=== PATIENT | male | born 1950 | race Caucasian/White ===

== ENCOUNTER 2019-05-30 07:23 | Day surgery (SDC) | payer OTHER, SELFPAY ==
[2019-05-29 16:08] VITALS: BMI 28.4
--- NOTE | 2019-05-30 07:42 | ANES.PREANES ---
Pre-Anesthetic Assessment Pre-Anesthetic Assessment: Height/Weight: Height 1.8 m Weight 92.533 kg Preop Diagnosis: screening Proposed Procedure: Operation Date: 05/30/19 09:00 Proposed Procedures p Colonoscopy(Not Applicable) - Feliz Nguyễn MD Familial anesthetic complications: No trouble with anesthesia Was Beta Nilesh taken within 24 hours: N/A Last intake: NPO > 8 hrs, took amlodipine this morning Social: Social History: No alcohol and No tobacco Exam: Pre-Anes Outpt Exam: alert, oriented x 3, clear to auscultation bilaterally and regular rate & rhythm Airway: Cervical ROM: WNL MP: 2 Additional comments: pulled teeth Pulmonary: Pulmonary: Sleep apnea (cpap) CV/HEM: CV/HEM: HTN : : None reported Hepatic: Hepatic: None reported GI: GI: None reported Metabolic: Metabolic: None reported Musc/skel: Musc/skel: Lower Back Pain Neuropsych: Neuropsych: None reported Anesthetic Plan: ASA status: II Anesthesia: MAC Risk of > 500 ml blood loss (7ml/kg in children): No PFSH Anesthesia PFSH: Social History (Updated 05/29/19 @ 16:07 by Vita Ramos) Smoking and tobacco status: never smoked Alcohol intake: never Data Anesthesia Cardiac Studies: No Data to Display
[2019-05-30 08:27] VITALS: BP 167/84; PULSE 64; RESP 18; TEMP 36.4; O2SAT 96
[2019-05-30] MEDS: sodium chloride 0.9% 1,000 ML 30 ML (08:33)
[2019-05-30 10:00] VITALS: BP 139/76; PULSE 54; RESP 16; TEMP 36.7; O2SAT 95
--- NOTE | 2019-05-30 10:01 | PM.HPUD ---
H&P update H&P Update: DATE OF SURGERY/PROCEDURE: 05/30/19 DATE H&P PERFORMED: 04/24/19 PLANNED PROCEDURE: Operation Date: 05/30/19 09:00 Proposed Procedures p Colonoscopy(Not Applicable) - Feliz Nguyễn MD Conscious Sedation: PHYSICAL EXAM: alert and oriented x 3 OTHER PERTINENT EXAM FINDINGS: Abdomen: Soft Full H&P Perinent History: Social History: Social History Smoking and tobacco status: never smoked Alcohol intake: never A&P Assessment and plan (1) Status post colonoscopy: Plan for colonoscopy under MAC Status: Acute Code(s): Z98.890 - Other specified postprocedural states
[2019-05-30 10:10] VITALS: BP 142/84; PULSE 52; RESP 16; O2SAT 98
--- NOTE | 2019-05-30 14:49 | ANE.PACU ---
 Inpatient post-anesthesia follow up: Airway intact: Yes Vital signs: Temperature 98.0 F Pulse Rate [Monito r] 52 Respiratory Rate 16 Blood Pressure [Le ft Arm] 142/84 Pulse Oximetry 98 Oxygen Delivery Me thod Room Air Oxygen Flow Rate 2 Fraction of Inspir ed Oxygen Hydration adequate: Yes Nausea and vomiting: No Mental status: Baseline
== END 2019-05-30 10:23 | disposition home or self-care (01) ==
PROVIDERS: Family Provider Internal Medicine; PCP Internal Medicine; Visit Provider Surgery
PROC: 0DJD8ZZ Inspection of Lower Intestinal Tract, Via Natural or Artificial Opening Endoscopic (ICD-10-PCS; CPT 45378; principal; 2019-05-30 09:00)
DX: Z12.11 Encounter for screening for malignant neoplasm of colon (principal); K57.30 Diverticulosis of large intestine without perforation or abscess without bleeding; G47.30 Sleep apnea, unspecified; I10 Essential (primary) hypertension
CPT/HCPCS: 12345; 45378; 96365; J2704; J7030

== ENCOUNTER → 2019-06-07 08:27 | Outpatient (BNVA) | payer OTHER, SELFPAY | PROVIDERS: Family Provider Internal Medicine; PCP Internal Medicine; Visit Provider Orthopaedic Surgery | DX: Z98.890 Other specified postprocedural states (principal); M19.139 Post-traumatic osteoarthritis, unspecified wrist | CPT/HCPCS: 73110 ==

== ENCOUNTER → 2019-06-21 08:26 | Outpatient (BNVA) | payer MEDICARE, OTHER, SELFPAY | PROVIDERS: Family Provider Internal Medicine; PCP Internal Medicine; Referring Provider Orthopaedic Surgery; Visit Provider Orthopaedic Surgery | DX: M25.561 Pain in right knee (principal); M17.11 Unilateral primary osteoarthritis, right knee | CPT/HCPCS: 73560; 73565 ==

== ENCOUNTER 2019-07-11 08:10 | Outpatient (CLI) | payer MEDICARE, OTHER, SELFPAY | END 2019-07-11 08:11 | disposition home or self-care (01) | PROVIDERS: Family Provider Internal Medicine; PCP Internal Medicine; Visit Provider Orthopaedic Surgery | DX: I44.0 Atrioventricular block, first degree (principal) | CPT/HCPCS: 93005 ==

== ENCOUNTER 2019-07-20 10:40 | Inpatient (IN) | payer MEDICARE, OTHER, SELFPAY ==
[2019-07-10 08:19] VITALS: BMI 29.2
--- NOTE | 2019-07-10 08:33 | ECG_ITS ---
Measurements Intervals [place] Rate: 65 P: 22 DC: 244 QRS: 56 QRSD: 121 T: 37 QT: 451 QTc: 472 SINUS RHYTHM WITH FIRST DEGREE AV BLOCK MODERATE INTRAVENTRICULAR CONDUCTION DELAY [110+ ms QRS DURATION] PROLONGED QT INTERVAL Compared to ECG 02/08/2019 10:13:30 Intraventricular conduction delay now present Prolonged QT interval now present Myocardial infarct finding no longer present Electronically Signed On 07-10-2019 15:30:58 CONSERVATION AGENT by Kathie Campbell M.D. [email or web address]
--- NOTE | 2019-07-10 08:55 | ANES.PREANE2 ---
Pre-Anesthetic Assessment Pre-Anesthetic Assessment: Height/Weight: Height 1.8 m Weight 95.254 kg Preop Diagnosis: Left knee end stage DJD Proposed Procedure: Operation Date: 07/20/19 07:00 Proposed Procedures p left total knee arthroplasty with imageless computer navigation/ 73228, 24720/M17.0(Left) - Zaid Fraser DO Exam: Pre-Anes Outpt Exam: alert, oriented x 3, clear to auscultation bilaterally and regular rate & rhythm Airway: Submandibular: WNL Cervical ROM: WNL CV/HEM: CV/HEM: HTN Comments: rx'd x 5y stress test 12/02 negative Musc/skel: Musc/skel: Lower Back Pain and OA/DJD Comments: nonradiating PFSH Anesthesia PFSH: Social History Smoking and tobacco status: never smoked Alcohol intake: never Data Anesthesia Cardiac Studies: No Data to Display
[2019-07-11 09:29] LABS: Add Urine Microscopic? NO
[2019-07-11 09:34] LABS: Basophils % 0.8 %; Eosinophils # 0.1 10^3/uL (0.0-0.8); Eosinophils % 2.6 %; Hematocrit 44.3 % (42.0-52.0); Lymphocytes # 1.5 10^3/uL (0.8-4.8); Lymphocytes % 30.5 %; Mean Corpuscular HGB Conc 33.9 g/dL (30.0-36.0); Mean Corpuscular Hemoglobin 28.3 pg (28.0-34.0); Mean Corpuscular Volume 83.6 fL (80-94); Mean Platelet Volume 11.3 fL (7.4-10.4); Monocytes # 0.4 10^3/uL (0.2-0.9); Monocytes % 8.2 %; Neutrophils # 2.9 10^3/uL (1.8-7.7); Neutrophils % 57.7 %; Nucleated Red Blood Cells % 0 %; Platelet Count 175 10^3/cmm (130-400); Red Cell Distribution Width 12.3 % (12.1-15.1)
[2019-07-11 09:36] LABS: Bilirubin Urine Neg (NEGATIVE); Blood Urine Neg (Negative); Glucose Urine UA Norm (Normal); Ketones Urine Negative (Negative); Leukocyte Esterase Urine Negative (Negative); Nitrate Urine Negative (Negative); Protein Urine Neg (Negative); Specific Gravity, Urine 1.005 (1.005-1.030); Urine Appearance Clear (CLEAR); Urine Color Yellow (Yellow); Urobilinogen Urine Norm (Negative); pH Urine 7 (5-7)
[2019-07-11 09:47] LABS: Alanine Aminotransferase 24 U/L (0-41); Albumin Level 4.2 g/dL (3.5-5.2); Alkaline Phosphatase 104 IU/L (40-130); Anion Gap 16.3 (5-19); Aspartate Amino Transferase 20 U/L (0-40); Blood Urea Nitrogen 14 mg/dL (8-23); Calcium 9.6 mg/dL (8.5-10.5); Carbon Dioxide 27 mmol/L (22-29); Chloride 96 mmol/L (98-107); Globulin 3.5 g/dL (1.3-4.6); Glomerular Filtration Rate 74.1 mL/min (90-130); Glucose 134 mg/dL (65-115); Potassium 3.3 mmol/L (3.5-5.1); Sodium 136 mmol/L (136-145); Total Bilirubin 0.4 mg/dL (0.15-1.2); Total Protein 7.7 g/dL (6.6-8.7)
[2019-07-20] VITALS (22 sets, daily range): BP systolic 92–176; BP diastolic 60–94; PULSE 54–97; RESP 13–25; TEMP 36.1–37; O2SAT 90–100
[2019-07-20] MEDS: sodium chloride 0.9% 1,000 ML 30 ML IV (06:09)
[2019-07-20] MEDS: CELEcoxib 200 mg Capsule 400 MG PO (06:11)
[2019-07-20] MEDS: gabapentin 300 mg Capsule PO (06:11)
[2019-07-20] MEDS: acetaminophen 500 mg Tablet 1000 MG PO (06:11)
--- NOTE | 2019-07-20 06:21 | ANES.PREANE2 ---
Pre-Anesthetic Assessment Pre-Anesthetic Assessment: Height/Weight: Height 1.8 m Weight 95.254 kg Temp Pulse Resp BP Pulse Ox 97.3 F L 64 18 147/81 97 07/20/19 05:49 07/20/19 05:49 07/20/19 05:49 07/20/19 05:49 07/20/19 05:49 Preop Diagnosis: DJD left knee Proposed Procedure: Operation Date: 07/20/19 07:00 Proposed Procedures p left total knee arthroplasty with imageless computer navigation/ 82064, 08928/M17.0(Left) - Zaid Fraser DO Last intake: Intake Last Liquid Date 07/19/19 Last Solid Date 07/19/19 Last Intake: 22:00 Meds/Allergies Current Medications: Current Medications Generic Name Dose Route Start Last Admin Trade Name Freq PRN Reason Stop Dose Admin Sodium Chloride 1,000 mls @ 30 ml s/hr 07/20/19 05:45 07/20/19 06:09 Sodium Chloride 0.9% IV 07/21/19 05:44 30 mls/hr .Q24H JULIANNA Administration Vancomycin HCl 1,5 00 mg/ 250 mls @ 166.667 mls/hr 07/20/19 05:33 07/20/19 06:10 Sodium Chloride IV 07/20/19 07:02 166.7 mls/hr ONCE ONE Administration Protocol PFSH Anesthesia PFSH: Social History Smoking and tobacco status: never smoked Alcohol intake: never Data Anesthesia CBC & Chem 7: 07/11/19 09:02 07/11/19 09:02 Cardiac Studies: No Data to Display
--- NOTE | 2019-07-20 06:43 | ANES.PROC ---
Anesthesia Procedures Procedure/Date: 07/20/19 Left adductor canal block Procedure Narrative: R&B's of left adductor canal block disc'd. Verbal and written consent obtained. Versed 2+1+1+.5mg, Fentanyl 50ug. US utilized to observe the left adductor canal space, PRATIK. Ropvicaine 0.5% + Lido 2% with epi in 3:1 mixture, 40 cc total volume in 5cc increments without problems/complications. Nerve Block ^: Nerve Block 1: Main Anesthesia: general anesthesia Time Out Performed: Yes Consent: requested by attending/covering physician, from patient, risks and benefits reviewed and patient agrees to proceed Nerve block location: adductor canal Anesthesia monitors applied: pulse oximetry and oxygen Nerve block position: supine Anesthetic Used: lidocaine 2%, ropivicaine 0.5% and with epi Amount of anesthesia used (mL): 40 Nerve Stimulator Used?: No Interscalene/Femoral BLK: 2 stimuplex 22 g needle used for position and inplane approach Injection: neg aspiration of heme Patient Tolerated Procedure: well and no complications Complications: none
--- NOTE | 2019-07-20 06:54 | W.PM.OPSUD ---
Surgery/Procedure H&P Update DATE OF PROCEDURE: July 20, 2019 DATE H&P PERFORMED: 06/21/19 H&P UPDATE INFORMATION: I have reviewed H&P completed within last 30 days, I have examined patient prior to procedure and No changes to prior documentation PREOP DIAGNOSIS: DJD left knee PLANNED PROCEDURE: Operation Date: 07/20/19 07:00 Proposed Procedures p left total knee arthroplasty with imageless computer navigation/ 95615, 87242/M17.0(Left) - Zaid Fraser DO
[2019-07-20] MEDS: fentaNYL 50 mcg/mL INJ 2mL 100 MCG IVP (06:55)
--- NOTE | 2019-07-20 06:55 | PM.OP ---
Operative Report Date of procedure: July 20, 2019 Pre-op Diagnosis: DJD left knee Post-op diagnosis: same Procedure Done: Left total knee arthroplasty with imageless computer assisted navigation Implants: Maxime triathlon components Specimens removed/disposition: Bone and cartilage left knee Surgeon: Zaid Fraser Anesthesia: Nerve Block (Preoperative single shot adductor canal block) Estimated blood loss (mL): 25 Tourniquet time (min): 120 Tourniquet time: At 300 mmHg pressure IV fluids (mL): 1,500 Urine output (mL): 350 Complications: No apparent complications Findings: Tricompartmental degenerative arthritis left knee Condition: stable Disposition: PACU Brief History: 68-year-old white male with progressive disabling left knee pain due to generative arthritis. X-rays show [id number] changes. Patient's failed conservative treatment. Risk, benefits and potential complications of total knee arthroplasty been discussed with the patient. He is attended the joint class. He is aware that risks include but are not limited to: Infection, nerve/blood vessel/tendon injury, failure to leave all pain postoperative stiffness potential loosening or fracture about the prosthesis that could require revision. Medical complications can include blood clots, heart attack, stroke risk up to including . Risk of transfusion is low following total knee arthroplasty however transfusions do carry the risk of transfusion reaction, transmission of infectious diseases such as hepatitis and AIDS all of which can be fatal. All the patient's questions have been answered is agreeable to proceed with surgery. Procedure: 2 g Ancef 1 g vancomycin 1 g prior to incision and that time of closure tranexamic acid Maxime triathlon total knee components Size 6 left cemented femur posterior stabilized Size 6 universal tibial baseplate Size 6 x 13 mm thickness posterior stabilized tibial articular surface Size 29 mm x 9 mm thickness asymmetric polyethylene patella Left total knee arthroplasty with resurfacing of patella, femur and tibia CPT 14688 Imageless computer assisted navigation used for procedure CPT 74333 Patient identified. Surgical site signed. Surgical permit signed. Patient received 1.0 g of Vancomycin and 2 g of Ancef for antimicrobial prophylaxis. Anesthesia team performed a adductor canal block in the preoperative holding area. He was taken to the operating room. He was placed under general anesthesia. A elaine catheter was placed for urinary drainage. A gel bump was placed under the ipsilateral buttock. A tourniquet was placed about the upper aspect of the operative left limb. The operative limb was then sterilely prepped and draped usual fashion. The patient received 1 g of Tranexamic acid intravenously for hemostasis. The operative limb was exsanguinated using an Esmarch bandage and the tourniquet inflated to 300 mm Hg pressure. A 20 cm midline incision was made with a skin knife. Full-thickness skin flaps were made. Skin edge bleeders were coagulated with electrocautery. Using a second knife we perform a medial parapatellar arthrotomy. Soft tissues were released off the anteromedial aspect of the tibia to the posterior medial corner of the tibia with second knife and Sales elevator. The anterior horns of the medial and lateral menisci were released and resected. Partial fat pad resection was performed with sharp dissection. The anterior posterior cruciate ligaments were divided sharply. Using electrocautery the lateral patellofemoral ligament was divided. The knee was placed in full extension. The patella was everted. Marginal osteophytes were removed. Electrocautery was taken around the periphery of the patella. The patella measured 25 mm in thickness. It sized a 29 mm oblong patella which is 9 mm in thickness. The patella was reamed to a thickness of 16 mm and then the patellar template was clamped to the cut surface of the patella and the 3 peg holes were drilled. A partial lateral facetectomy was performed with an oscillating saw. The knee was flexed to 60?. A guidepin for the [employer] navigation device was inserted on the distal femur on Whitesides line. We measured for the anterior posterior offset and input the number. We attached the anterior reference unit. We entered the offset. We maneuvered the leg to register the femur. We then set the resection plane at 0? of varus/valgus from the mechanical axis and flexion at 4? for the femoral component. We set the distal femoral resection guide for 11 mm. Using an oscillating saw we performed the distal femoral cut. We then secured the tibial cutting jig on the tibia and held in place with a rubberized strap. The guide was put in place and the medial one third of the tibial tubercle and was secured with 3 pins. Tibial registration was performed by first reading and then adjust the distal offset to match 4 to the midline probe offset. The side levers were unlocked and we extended the distal probe to match offsets. We then registered the lateral followed by the medial malleolus. We set the varus/valgus angle to 0? and set the posterior slope to 0 degrees. We used the 2 mm stylus set our depth for tibial resection. We then used the oscillating saw to perform our proximal tibial cut. We now at checked our extension space and we were able to put a size 11 spacer and with good stability and to near full extension. We sized the femur for a size 6 using the anterior referencing guide. Rotation was set at 3? of external rotation. The 4-in-1 cutting guide was put into place and an carmen wing was placed through the anterior cutting guide to assess for the potential of anterior notching. The carmen wing passed anterior to the femoral cortex. The 4-in-1 cutting block was pinned into place and the anterior and posterior as well as the chamfer cuts were then performed. The PS cutting block was pinned into place and the box cut was made with an oscillating saw. Lug holes were drilled. A size 6 femoral box cut component was then put on the distal femur. Box cut was then made with reciprocating saw. The knee was flexed to 110? and a PCL retractor was used to subluxate the tibia anteriorly with respect to the femur.The tibia was sized for a size 6. The placement of the tibial trial was adjusted for maximal coverage and appropriate rotation. The size 6 tibial plate was held in place using headed pins.We then drilled for the stem and punch for the keel. A trial reduction was performed with an 11 mm trial articular surface the knee was able to come to 5 degrees of hyper extension and flexion 110?. The patella tracked nicely with a no touch technique. All trial components were removed from the knee. The knee was irrigated with pulsatile lavage containing antibiotic solution and the joint was dried. We then mixed 1 bag of low viscosity cement with Tobramycin. Tobramycin for additional antimicrobial prophylaxis. The patellar component was cemented first and the patellar component compress to the patella using the patellar clamp. Excess cement was removed using a Gilbert elevator. We then cemented the femoral component in place. A separate bag of cement was mixed. We cemented the tibial component and removed excess cement. The cement was allowed to cure fully. A trail size 6 x 13mm posterior stabilized was inserted and the knee was reduced. The knee came to neutral and flexion easily to 110?.The actual 6 x 13 mm posterior stabilized tibial articular bearing surface was inserted into place. The tourniquet was deflated after the patella and tibial component had been cemented in place and the cement had hardened. The knee came to neutral and flexion easily to 110?. The knee was stable to varus valgus stress. The patella tracked nicely with a no touch technique. The knee was then irrigated with Betadine-containing saline solution and antibiotic containing saline solution. FloSeal was then placed in the wound for additional hemostasis within the joint was dried. Vancomycin powder was placed and capsular closure was performed with permanent as well as absorbable barbed suture. The subcutaneous layer was irrigated with Betadine-containing saline solution and antibiotic containing saline solution. Vancomycin powder was also placed in this layer. The patient received 1 g of Tranexamic acid intravenously for hemostasis at time of wound closure. The wound was then closed in layers with matthew on skin followed by skin glue. The knee joint and subcutaneous tissues were injected with 120 mL of a solution containing Exparel, 0.25% Marcaine and sterile saline. Antibiotic ointment was applied to the incision. Sterile dressings were then applied. A compressive Clemente wrap was applied from ankle to groin. The patient was aroused from general anesthesia. Patient was taken to recovery room. Patient tolerated the procedure well. All counts were correct.
[2019-07-20] MEDS: midazolam 1 mg/mL INJ 5 ML 5 MG IVP (06:56)
--- NOTE | 2019-07-20 07:57 | SUR.OPER ---
Patient family updated of patient status per cell phone
--- NOTE | 2019-07-20 09:21 | SUR.OPER ---
FAMILY UPDATED OF PATIENTS STATUS.
[2019-07-20] MEDS: vancomycin 1,000 MG SDV 1000 MG XX (09:40)
--- NOTE | 2019-07-20 10:19 | XR_ITS ---
WS: [id number] XR knee LT 1-2V 94973 REASON FOR EXAM: post op left tkr FINDINGS: Total knee replacement is identified the hardware seen in good position. There is normal se ating of the hardware seen. XR/XR knee LT 1-2V 24656 IMPRESSION: Total knee replacement satisfactory alignment.
--- NOTE | 2019-07-20 10:32 | SUR.PHASEI ---
1030 PATIENT TO PACU AT THIS TIME. ORAL AIRWAY IN PLACE, PLACED ON NC O2, SPO2 96%. DRESSING INTACT TO LEFT KNEE. IQBAL SECURED TO RIGHT KNEE, DRAINING WILBERTO COLORED URINE.
--- NOTE | 2019-07-20 11:22 | SUR.PHASEI ---
1112 PATIENT TO MED SURG AT THIS TIME. DRESSING TO LEFT KNEE CDI, FIRST ICE IN PLACE. LEFT PEDAL PULSE, STRONG AND MARKED. PATIENT DENIES PAIN. STABLE FOR TRANSPORT TO MED SURG.
--- NOTE | 2019-07-20 12:05 | PC.SOCIAL ---
Patient has been seen by Autocad Technician. Intervention assessments done on 07/19/2019 under [facility] #[id number]
[2019-07-20] MEDS: oxyCODONE-APAP 5-325 mg Tablet 1 TAB PO ×2 (13:33→20:59)
[2019-07-20] MEDS: sodium chloride 0.9% 1,000 ML 100 ML IV ×2 (13:33→21:01)
[2019-07-20] MEDS: chlorhexidine gluconate 0.12% Btl 473 mL 30 ML MUCOUS MEM ×2 (16:55→21:00)
[2019-07-20] MEDS: iron polysaccharide complex 150 mg Capsule PO (16:56)
[2019-07-20] MEDS: sennosides-docusate Tablet 2 TAB PO (16:56)
[2019-07-20] MEDS: TRAMadol 50 mg Tablet PO (16:56)
--- NOTE | 2019-07-20 18:28 | NUR.SHIFT ---
PATIENT HAS DONE WELL TODAY. PAIN WELL CONTROLLED. 600ML OF URINE OUTPUT. URINE WAS SLIGHTLY BLOODY WHEN PATIENT FIRST ARRIVED TO THE FLOOR, BUT THAT HAS NOW CLEARED. PATIENT HAS TOLERATED THE CPM WELL. PATIENT HAD AN EPISODE OF HYPOTENSION WHILE GETTING UP WITH PHYSICAL THERAPY. BP WAS 70'S/40'S BUT CORRECTED QUICKLY. PATIENT'S BP HAS BEEN FINE SINCE THAT TIME. GOOD NEUROVASCULAR CHECKS. NO COMPLAINTS AT THIS TIME.
[2019-07-20] MEDS: apixaban 5 mg Tablet 2.5 MG PO (22:36)
[2019-07-21] VITALS (10 sets, daily range): BP systolic 133–164; BP diastolic 77–82; PULSE 64–85; RESP 16–18; TEMP 36.7–37; O2SAT 93–98
[2019-07-21] MEDS: oxyCODONE-APAP 5-325 mg Tablet 1 TAB PO ×5 (05:15→22:45)
[2019-07-21] MEDS: vancomycin 1,000 MG in sodium chloride 0.9% 250 ML 250 MG IV (05:17)
[2019-07-21 05:59] LABS: Basophils % 0.1 %; Hematocrit 35.9 % (42.0-52.0); Hemoglobin 12.1 g/dL (11.7-16.6); Lymphocytes # 1.1 10^3/uL (0.8-4.8); Lymphocytes % 11.8 %; Mean Corpuscular HGB Conc 33.7 g/dL (30.0-36.0); Mean Corpuscular Hemoglobin 28.5 pg (28.0-34.0); Mean Corpuscular Volume 84.7 fL (80-94); Mean Platelet Volume 11.5 fL (7.4-10.4); Monocytes # 0.7 10^3/uL (0.2-0.9); Monocytes % 7.4 %; Neutrophils # 7.5 10^3/uL (1.8-7.7); Neutrophils % 80.5 %; Nucleated Red Blood Cells % 0 %; Platelet Count 148 10^3/cmm (130-400); Red Blood Count 4.24 10^6/uL (4.1-5.3); Red Cell Distribution Width 12.4 % (12.1-15.1); White Blood Count 9.3 10^3/uL (4.0-10.0)
[2019-07-21 06:27] LABS: Anion Gap 14.2 (5-19); Blood Urea Nitrogen 18 mg/dL (8-23); Calcium 8.6 mg/dL (8.5-10.5); Carbon Dioxide 25 mmol/L (22-29); Chloride 102 mmol/L (98-107); Glucose 149 mg/dL (65-115); Osmolality Calculated 285 mOsm/kg (285-295); Potassium 3.2 mmol/L (3.5-5.1); Sodium 138 mmol/L (136-145)
--- NOTE | 2019-07-21 06:35 | PC.NURSE ---
elaine removed pt tolerated well, given urinal. ice packs replaced no complaints of pain voiced. dressing dry and intact
--- NOTE | 2019-07-21 07:02 | P.PN_ITS ---
Subjective Subjective: Interval history: 68 yo white male POD# 1 s/p left tkr with navigation Hazel catheter was removed this morning per protocol. Patient has not voided since the catheter was removed. Patient without any complaints of chest pain or shortness of breath. Patient has not ambulated today. He use the CPM machine briefly yesterday afternoon. Again plan overall is to discharge the patient when his pain is well controlled he is ambulating safely to be discharged to home with home health. He has 2 stairs to get into his house otherwise no stairs. His is concerned that she is not going to be able to be much of a help to him due to her petite size. Medications: Reviewed: Yes Vitals/I&O/Wt Last Vital Signs Temp 98.0 F 07/21/19 04:00 Pulse 84 07/21/19 04:00 Resp 18 07/21/19 05:15 BP 133/82 07/21/19 04:00 Pulse Ox 93 07/21/19 04:00 07/20/19 07/21/19 07/21/19 22:59 06:59 14:59 Intake Total 926.667 / 3116.667 450 / 3566.667 Output Total 850 / 1600 875 / 2475 Balance 76.667 / 1516.667 -425 / 1091.667 Physical Exam Narrative: EXAM NARRATIVE: 68 yo white male in no acute distress. He is alert and cooperative. his Hazel catheter has been removed this morning. He has not voided since removal of the catheter. He has not ambulated as of yet today. Neck/C-Spine: COMMON NORMALS: no JVD Resp: COMMON NORMALS: normal respiratory effort, no retractions, no use of accessory muscles and clear to auscultation bilaterally AUSCULTATION: clear to auscultation bilaterally Cardio: COMMON NORMALS: no JVD, regular rate and regular rhythm RATE: regular rate RHYTHM: regular rhythm GI: COMMON NORMALS: normal to inspection, nondistended, normoactive bowel sounds, soft to palpation and non-tender PALPATION: Yes soft Extremity: RIGHT LOWER EXTREMITY: Yes lower leg Right lower leg: Yes special tests Right lower leg special tests: Andry's sign: Negative LEFT LOWER EXTREMITY: Yes knee joint (Clemente wrap removed.) and Yes lower leg Left lower leg: Yes special tests Left lower leg special tests: Andry's sign: Negative Urinary Catheter Management^: Hazel: Cath Placed During This Visit: yes Urinary Catheter Date of Insertion: 07/20/19 Urinary Catheter Time of Insertion: 07:35 Data : 07/21/19 05:10 07/21/19 05:10 A&P Assessment and plan (1) Status post total left knee replacement: Postoperative day 1 following left total knee arthroplasty version of arthritis Finish IV antibiotics postop Discontinue Hazel catheter per protocol postoperative day 1 Pain control Highest risk for VTE: Rx with mobilization, compression devices and pharmacologic with Eliquis 2.5 mg by mouth twice a day for 14 days Discharge planning home with home health with pain control and ability to ambulate safely is been achieved by tomorrow Status: Acute Code(s): Z96.652 - Presence of left artificial knee joint Attestations Medical Necessity Statement*: Patient requires continued inpatient level care as pain control and ability to safely ambulate at home has not been definitively achieved. Hopefully these goals will be achieved by tomorrow the patient can be discharged to home with home health arrangements made for approximately 2 weeks prior to being seen back in the office. Time Spent in Patient Care: 16 - 35 minutes (>than 50% of time spent in counselling and/or direct pt care on unit) . Coding Level of Care Code Acute Behavioral Health Associate for Rufina Gayle Exam Detailed Diagnoses Status post total left knee replacement Z96.652
[2019-07-21] MEDS: citalopram 20 mg Tablet 40 MG PO (08:45)
[2019-07-21] MEDS: apixaban 5 mg Tablet 2.5 MG PO ×2 (08:45→17:48)
[2019-07-21] MEDS: pantoprazole DR 40 mg Tablet PO (08:46)
[2019-07-21] MEDS: multivitamin therapeutic Tablet 1 TAB PO (08:46)
[2019-07-21] MEDS: aspirin 81 mg EC Tablet PO (08:46)
[2019-07-21] MEDS: chlorthalidone 25 mg Tablet 12.5 MG PO (08:46)
[2019-07-21] MEDS: amlodipine 10 mg Tablet PO (08:46)
[2019-07-21] MEDS: iron polysaccharide complex 150 mg Capsule PO ×2 (08:46→17:50)
[2019-07-21] MEDS: chlorhexidine gluconate 0.12% Btl 473 mL 30 ML MUCOUS MEM ×4 (08:47→22:46)
--- NOTE | 2019-07-21 09:49 | ANE.PACU2 ---
 Inpatient post-anesthesia follow up: Airway intact: Yes Vital signs: Temperature 98.0 F Pulse Rate 64 Respiratory Rate 18 Blood Pressure 146/77 Pulse Oximetry 97 Oxygen Delivery Me thod Room Air Oxygen Flow Rate 3 Fraction of Inspir ed Oxygen Hydration adequate: Yes Nausea and vomiting: No Pain level: 1 Mental status: Baseline
[2019-07-21] MEDS: sodium chloride 0.9% 1,000 ML 100 ML IV ×2 (12:52→22:45)
--- NOTE | 2019-07-21 13:22 | PC.CHAP ---
Pastoral Care Encounter/Spiritual Assessment Type of Contact [] Declined farrowing worker visit [] Patient/Family/Request visit [] Outpatient visit [] Follow-up visit [] Physician referral [] Code/Alert [x] Routine visit [] Staff referral [] Actively dying [] Patient sleeping [] Family support [] [] Out of room [] Palliative care [] [] Receiving care in room [] Pre-surgical visit [] Trauma [] Long length of stay [] ICU visit [] Other: Relational/Emotional Strength [] Patient feels connected with others/family/visitors/staff [] Distress [] Loneliness/isolation [] Abandonment Spirituality of Patient [x] Person of Emely [] Attends Roman Catholic of their Emely [] Believes in Prayer [] Reads Bible or Sabianist materials [] There are Spiritual issues to be addressed Game Bird Farmer Interventions [x] Prayer [x] Active listening [x] Non-anxious presence [] Spiritual/emotional support [] Crisis/trauma care [] Spiritual counseling [] Bereavement support [] Provided bereavement packet [] Provided Bible/devotional materials [] Provided toy/stuffed animal, coloring book to patient or family member [] Provided Communion [] Anointing/[place] [] Salvation [x] Completed spiritual assessment [] Other: Impact on Illness or Injury [] Angry [] Fearful [] Anxious [] Often cries [] Exhaustion [] Unable to work [] Unable to attend episcopalian [] Unable to walk/stand [] Unable to read [] Unable to drive [] Unable to eat/drink [] Unable to sleep [] Unable to be with family [] Patient intubated [] Other: Summary patient [id number] better Time spent with patient 10 min 1 visitor
--- NOTE | 2019-07-21 14:38 | PC.OT ---
OT SCREEN/EVAL COMPLETED. PATIENT REQUIRES ONLY SBA FOR LB DRESSING. NO FURTHER OT REQUIRED AT THIS TIME.
[2019-07-21] MEDS: ketorolac 30 mg/mL INJ 15 MG IVP (17:47)
[2019-07-21] MEDS: TRAMadol 50 mg Tablet PO (17:49)
[2019-07-21] MEDS: sennosides-docusate Tablet 2 TAB PO (17:49)
[2019-07-21] MEDS: cyclobenzaprine 10 mg Tablet PO (17:49)
--- NOTE | 2019-07-21 23:30 | PC.NURSE ---
Reassessment for Oxycodone. Pt rates leg pain at 6/10. RR 18, spontaneous and non labored.
[2019-07-22] VITALS: BP 138/78; PULSE 87; RESP 17; TEMP 36.9; O2SAT 97
[2019-07-22 02:55] VITALS: RESP 16
[2019-07-22] MEDS: oxyCODONE-APAP 5-325 mg Tablet 1 TAB PO ×2 (02:55→06:31)
[2019-07-22 04:00] VITALS: BP 134/76; PULSE 84; RESP 17; TEMP 36.8; O2SAT 97
--- NOTE | 2019-07-22 04:41 | PC.NURSE ---
Reassessment for oxycodone administration: Pt rates pain at 3/10 for leg pain. RR is 16, spontaneous and non-labored.
--- NOTE | 2019-07-22 04:45 | PM.DCS ---
Discharge Providers Date of Admission: 07/20/19 10:40 Date of Discharge: July 22, 2019 Attending Provider at Admission: Zaid Fraser DO Attending Provider at Discharge: Zaid Fraser DO Primary Care Provider: Aquiles Barreto DO Diagnoses at Discharge Discharge Diagnosis (1) Status post total left knee replacement: Status: Acute Reason for Visit Reason for Visit: Reason For Visit: M17.0 Hospital Course Hospital Course: Patient admitted on 07/20/2019. He underwent left total knee arthroplasty with resurfacing of distal femur, proximal tibia and patella using cement and imageless computer guided navigation. No intraoperative or immediate postoperative complications occurred. Postoperative x-ray showed satisfactory placement of implants and alignment of components. Patient received IV antibiotics vancomycin and cefazolin pre-and postop for surgical prophylaxis. Postoperative day 2 he was started on cefuroxime 500 mg by mouth twice a day for 7 days for extended oral prophylaxis. He was deemed at highest risk for venous thromboembolism complications postoperatively. This was treated with mobilization, compression devices and Eliquis 2.5 mg by mouth twice a day was started which will be continued for 14 days postoperatively. He is weightbearing as tolerated. He was resumed on his usual diet. Is making progress with physical therapy. Plan will be to discharge the patient to home with home health with follow-up visit in 2 weeks in the orthopedic clinic for staple removal. Physical Exam Const: COMMON NORMALS: no apparent distress, oriented x3, healthy appearing, alert and well nourished Neck/C-Spine: COMMON NORMALS: no JVD Resp: COMMON NORMALS: normal respiratory effort and clear to auscultation bilaterally AUSCULTATION: clear to auscultation bilaterally Cardio: COMMON NORMALS: no JVD, regular rate and regular rhythm RATE: regular rate RHYTHM: regular rhythm GI: COMMON NORMALS: normal to inspection, nondistended, normoactive bowel sounds, soft to palpation and non-tender PALPATION: Yes soft Extremity: RIGHT LOWER EXTREMITY: Yes lower leg Right lower leg: Yes special tests Right lower leg special tests: Andry's sign: Negative LEFT LOWER EXTREMITY: Yes knee joint Left knee: Yes inspection (incision intact) and Yes neurovascular exam (sensation intact, able to DF and PF left ankle) and Yes lower leg Left lower leg: Yes special tests Left lower leg special tests: Andry's sign: Negative Neuro: COMMON NORMALS: oriented x3 SENSORIUM/ORIENTATION: Yes alert Urinary Catheter Management^: Hazel: Cath Placed During This Visit: yes Urinary Catheter Date of Insertion: 07/20/19 Urinary Catheter Time of Insertion: 07:35 Discharge Data Data Completed and Pending: Completed Studies During Hospitalization Category Date Time Status XR knee LT 1-2V 7 3560 Urgent Exams 07/20/19 10:19 Completed Pathology: Surgic al [PTH] Routine Pth 07/20/19 10:33 Completed Pending at discharge Category Date Time Status Basic Metabolic P ryann AM LABS Lab 07/22/19 04:00 Ordered Complete Blood Co unt w/Auto AM LABS Lab 07/22/19 04:00 Ordered Labs from last 24 hours 07/21/19 07/21/19 05:10 05:10 WBC 9.3 RBC 4.24 Hgb 12.1 Hct 35.9 L MCV 84.7 MCH 28.5 MCHC 33.7 RDW 12.4 Plt Count 148 MPV 11.5 H Neut % (Auto) 80.5 Lymph % (Auto) 11.8 [place] % (Auto) 7.4 Eos % (Auto) 0.0 Baso % (Auto) 0.1 Neut # (Auto) 7.5 Lymph # (Auto) 1.1 [place] # (Auto) 0.7 Eos # (Auto) 0.0 Baso # (Auto) 0.0 Nucleated RBC % (a uto) 0 Nucleated RBCs # 0.0 Sodium 138 Potassium 3.2 L Chloride 102 Carbon Dioxide 25 Anion Gap 14.2 BUN 18 Creatinine 1.2 GFR Calculation 60.0 L Glucose 149 H Calculated Osmolal ity 285 Calcium 8.6 Vitals: Last Vital Signs Temp 98.5 F 07/22/19 00:00 Pulse 87 07/22/19 00:00 Resp 16 07/22/19 02:55 BP 138/78 07/22/19 00:00 Pulse Ox 97 07/22/19 00:00 Discharge Plan Discharge Patient Disposition: Home Health Service Condition: Stable Prescriptions: New oxycodone-acetaminophen 5-325 mg tablet 1 tab PO Q4H PRN (Reason: pain) Qty: 40 RF: 0 cefuroxime axetil 500 mg tablet 500 mg PO BID 7 Days Qty: 14 RF: 0 Eliquis 2.5 mg tablet 2.5 mg PO BID Qty: 30 RF: 0 Continued cyclobenzaprine 10 mg tablet 10 mg PO PRN PRN (Reason: Pain) RF: 0 potassium chloride 10 mEq Capsule, Extended Release 10 meq PO DAILY RF: 0 pantoprazole [Protonix] 40 mg Tablet,Delayed Release (Dr/Ec) 40 mg PO DAILY RF: 0 chlorthalidone 25 mg tablet 12.5 mg PO DAILY RF: 0 aspirin 81 mg tablet,delayed release (DR/EC) 81 mg PO DAILY RF: 0 citalopram [Celexa] 40 mg Tablet 40 mg PO DAILY RF: 0 sildenafil [Viagra] 25 mg Tablet 25 mg PO DAILY PRN (Reason: Erectile Dysfunction) RF: 0 amlodipine 10 mg Tablet 10 mg PO DAILY RF: 0 Discharge Orders: Discharge Order (Routine); Ordered 07/22/19 Ordered By: Zaid Fraser Referrals: Zaid Fraser DO [Physician] - 08/03/19 10:00 am Discharge Diet: Usual diet Discharge Activity: Increase activity as tolerated and Use walker/crutches as instructed Activity Restrictions/Additional Instructions: gait and transfer training begin with walker may progress to cane as tolerated Quad sets, active and passive range of motion. Do not attempt to progress beyond 90 degrees of flexion so as not to disrupt wound ankle pumps, calf/thigh isometrics and gluteal squeezes--25 reps 3-4 sets per day stairclimbing as tolerated Wound care right knee: Home nurse will remove old dressing. Clean incision line with saline. Cover with new Telfa island dressing Discharge Attestations Time Spent in Discharge Care*: greater than 30 min Status at Discharge: Cognitive status at discharge: cognitively intact, Behavioral status at discharge: cooperative, Functional status at discharge: uses cane/walker Overall status at discharge: patient is progressing back to baseline Quality Metrics Clinical Quality Measures During this hospital stay, did patient experience: None Coding Level of Care Code Acute [employer] for Patog Fwd Exam Detailed Diagnoses Status post total left knee replacement Z96.652
[2019-07-22 06:13] LABS: Basophils % 0.6 %; Eosinophils # 0.1 10^3/uL (0.0-0.8); Eosinophils % 1.5 %; Hematocrit 36.1 % (42.0-52.0); Hemoglobin 12.2 g/dL (11.7-16.6); Lymphocytes # 1.8 10^3/uL (0.8-4.8); Lymphocytes % 25.5 %; Mean Corpuscular HGB Conc 33.8 g/dL (30.0-36.0); Mean Corpuscular Hemoglobin 28.4 pg (28.0-34.0); Mean Corpuscular Volume 84.1 fL (80-94); Mean Platelet Volume 11.7 fL (7.4-10.4); Monocytes # 0.8 10^3/uL (0.2-0.9); Monocytes % 10.6 %; Neutrophils # 4.4 10^3/uL (1.8-7.7); Neutrophils % 61.4 %; Nucleated Red Blood Cells % 0 %; Platelet Count 144 10^3/cmm (130-400); Red Blood Count 4.29 10^6/uL (4.1-5.3); Red Cell Distribution Width 12.6 % (12.1-15.1); White Blood Count 7.2 10^3/uL (4.0-10.0)
[2019-07-22 06:31] VITALS: RESP 18
[2019-07-22 06:35] LABS: Blood Urea Nitrogen 13 mg/dL (8-23); Calcium 8.7 mg/dL (8.5-10.5); Carbon Dioxide 30 mmol/L (22-29); Chloride 98 mmol/L (98-107); Glomerular Filtration Rate 74.1 mL/min (90-130); Glucose 119 mg/dL (65-115); Osmolality Calculated 283 mOsm/kg (285-295); Sodium 138 mmol/L (136-145)
[2019-07-22 07:45] VITALS: BP 169/94; PULSE 74; RESP 18; TEMP 36.4; O2SAT 93
[2019-07-22] MEDS: sennosides-docusate Tablet 2 TAB PO (08:48)
[2019-07-22] MEDS: iron polysaccharide complex 150 mg Capsule PO (08:49)
[2019-07-22] MEDS: chlorthalidone 25 mg Tablet 12.5 MG PO (08:49)
[2019-07-22] MEDS: aspirin 81 mg EC Tablet PO (08:50)
[2019-07-22] MEDS: pantoprazole DR 40 mg Tablet PO (08:50)
[2019-07-22] MEDS: multivitamin therapeutic Tablet 1 TAB PO (08:50)
[2019-07-22] MEDS: amlodipine 10 mg Tablet PO (08:50)
[2019-07-22] MEDS: apixaban 5 mg Tablet 2.5 MG PO (08:51)
[2019-07-22] MEDS: citalopram 20 mg Tablet 40 MG PO (08:51)
[2019-07-22] MEDS: chlorhexidine gluconate 0.12% Btl 473 mL 30 ML MUCOUS MEM (08:52)
[2019-07-22 09:05] VITALS: BP 169/94; PULSE 74; RESP 18; TEMP 36.4; O2SAT 93
== END 2019-07-22 09:17 | disposition home health service (06) | DRG 470 ==
LOC: MEDSURG 07-21 09:57
PROVIDERS: Admitting Provider Orthopaedic Surgery; Family Provider Internal Medicine; PCP Internal Medicine; Visit Provider Orthopaedic Surgery
PROC: 0SRD0J9 Replacement of Left Knee Joint with Synthetic Substitute, Cemented, Open Approach (ICD-10-PCS; CPT 27447; principal; 2019-07-20 07:00)
DX: M17.12 Unilateral primary osteoarthritis, left knee (principal); Z79.82 Long term (current) use of aspirin
CPT/HCPCS: 12345; 36415; 51702; 73560; 80048; 80053; 81003; 85025; 86850; 86900; 88304; 96365; 96374; 96375; 97110; 97116; 97162; 97530; C1776; C9290; J0690; J1100; J1580; J1885; J2001; J2250; J2370; J2405; J2704; J2710; J2795; J3010; J3370; J3490; J7030; J7050

== ENCOUNTER 2019-08-16 08:19 | Outpatient (RCR) | payer MEDICARE, OTHER, SELFPAY | END 2019-09-14 23:59 | disposition home or self-care (01) | LOC: SPT 08:19 | PROVIDERS: Family Provider Internal Medicine; PCP Internal Medicine; Referring Provider Orthopaedic Surgery; Visit Provider Orthopaedic Surgery | DX: Z47.1 Aftercare following joint replacement surgery (principal); Z96.652 Presence of left artificial knee joint | CPT/HCPCS: 97110; 97162 ==

== ENCOUNTER → 2019-08-18 09:44 | Outpatient (BNVA) | payer MEDICARE, OTHER, SELFPAY | PROVIDERS: Family Provider Internal Medicine; PCP Internal Medicine; Visit Provider Orthopaedic Surgery | DX: Z96.652 Presence of left artificial knee joint (principal) | CPT/HCPCS: 73562 ==

== ENCOUNTER → 2019-10-23 08:33 | Outpatient (BNVA) | payer MEDICARE, OTHER, SELFPAY | PROVIDERS: Family Provider Internal Medicine; PCP Internal Medicine; Visit Provider Orthopaedic Surgery | DX: Z98.890 Other specified postprocedural states (principal); M25.531 Pain in right wrist | CPT/HCPCS: 73110 ==

== ENCOUNTER → 2020-02-20 09:44 | Outpatient (BNVA) | payer MEDICARE, OTHER, SELFPAY | PROVIDERS: Family Provider Internal Medicine; PCP Internal Medicine; Visit Provider Urology | DX: R31.0 Gross hematuria (principal); R33.8 Other retention of urine; N42.0 Calculus of prostate | CPT/HCPCS: 80053; 81001 ==

== ENCOUNTER 2020-02-22 07:13 | Outpatient (CLI) | payer MEDICARE, OTHER, SELFPAY ==
--- NOTE | 2020-02-22 07:15 | US_ITS ---
WS: [id number] RENAL ULTRASOUND HISTORY: GROSS HEMATURIA COMPARISON: None available. TECHNIQUE: 2-D and color Doppler imaging of the kidney submitted. Right kidney: 11.6 cm x 5.8 cm x 5.2 cm. Normal echogenicity with no hydronephrosis or mass. Left kidney: 11.5 cm x 6.2 cm x 5.1 cm. Normal size kidney. Cortical cyst upper pole with a maximum diameter 4 mm. No cortical thinning. Aorta: Normal. Urinary Bladder: Mildly compressed urinary bladder secondary to enlarged heterogeneous lobulated pros montano gland. Prostate measures 6.8 x 5.9 x 5.2 cm. US/US renal BI* [id number] IMPRESSION: 1. No hydronephrosis. 2. Markedly enlarged nodular prostate gland with encroachment into the urinary bladder.
== END 2020-02-22 07:14 | disposition home or self-care (01) ==
LOC: US 07:14
PROVIDERS: PCP Internal Medicine; Visit Provider Urology
DX: R31.0 Gross hematuria (principal); N42.0 Calculus of prostate
CPT/HCPCS: 76770; 81001; 87635

== ENCOUNTER 2020-02-26 11:40 | Day surgery (SDC) | payer MEDICARE, OTHER, SELFPAY ==
[2020-02-23 13:21] VITALS: BMI 28.8
[2020-02-26] VITALS (13 sets, daily range): BP systolic 145–230; BP diastolic 83–120; PULSE 48–63; RESP 12–20; TEMP 36.4–36.6; O2SAT 95–100
--- NOTE | 2020-02-26 11:56 | W.PM.OPSUD ---
Surgery/Procedure H&P Update DATE OF PROCEDURE: February 26, 2020 DATE H&P PERFORMED: 02/22/20 H&P UPDATE INFORMATION: I have reviewed H&P completed within last 30 days, I have examined patient prior to procedure, No changes to prior documentation and H&P is in [facility] EMR on date indicated PREOP DIAGNOSIS: Cystolithiasis PLANNED PROCEDURE: Operation Date: 02/26/20 13:00 Proposed Procedures p Cystolitholapaxy 65120 N42.0(Not Applicable) - Roldan Gibson MD
--- NOTE | 2020-02-26 11:58 | PM.OP ---
Operative Report Date of procedure: February 26, 2020 Pre-op Diagnosis: Cystolithiasis Post-op diagnosis: same Post-op Findings: Moderate sized calcification in the prostatic fossa anteriorly. Oozing mucosa at the site of dystrophic calcification formation. Procedure Done: 1. Cystolitholapaxy <2.5 cm 2. Fulguration of bladder neck bleeding Pathology: Stone fragments Surgeon: Paige Estimated blood loss: Minimal Urine output: Not measured Complications: None Findings: Stone in the expected position Condition: stable Disposition: PACU Brief History: Wilbert is a very pleasant 69-year-old white male who is recently evaluated for gross hematuria and found to have a large stone apparently a dystrophic calcification on the anterior prostatic fossa at the bladder neck. Admitted for cystolitholapaxy. Procedure: After routine preoperative evaluation examination and obtaining of informed consent was taken to the operating suite on 02/26/2020 where general anesthesia was administered without difficulty after appropriate timeout was performed, SCDs confirmed to be functioning, preoperative antibiotics administered, beta-jl protocol confirmed. Prepped and draped in usual sterile fashion in dorsolithotomy position pain careful attention to avoiding pressure points 21 Monegasque cystoscope with 30 degree lens was introduced into the urethral meatus and advanced into the bladder under videoscopy. The stone was encountered in the prostatic fossa located anteriorly near the bladder neck. No other gross pathology was identified and examination of the bladder with 30 and 70 degree lenses. Grasping forceps were used to break up the stone. It was clearly adherent to the prostatic mucosa at the bladder neck at 12 o'clock position. The fragments were flushed free from the bladder. There was some oozing at the site of attachment at the bladder neck and this was fulgurated with a Bugbee cautery probe. Meticulous hemostasis was confirmed. The bladder was then drained with a 20 Monegasque 30 cc balloon catheter with a plug in the irrigation port. PLANS: 1. Should be able to be discharged from outpatient surgery this afternoon. 2. Catheter removal tomorrow either in my clinic or at home based on his preference. 3. If voids well we will plan on seeing him back in about 6 months
[2020-02-26] MEDS: sodium chloride 0.9% 1,000 ML 30 ML IV (12:08)
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
[2020-02-26] MEDS: levofloxacin-dextrose 5 % 500 MG/100 ML PREMIX 100 MG IV (12:48)
[2020-02-26] MEDS: sodium chloride 0.9% 1,000 ML 500 ML IV (14:00)
--- NOTE | 2020-02-26 14:35 | SUR.PHASEI ---
1418 PT TO OPS AWAKE ALERT URINE CLEAR WITH TINGE OF PINK, VSS PT DRINKING SODA AND EATING CRACKERS , HANDOFF AT BEDSIDE, INFORMED PT AND NURSE THE NUMBER FOR HIS WAS WRONG, DR HASTINGS UNABLE TO UPDATE HER, PT TO BE SEEN BY DR HASTINGS BEFORE DISCHARGE.
--- NOTE | 2020-02-26 15:15 | ANE.PACU2 ---
Inpatient post-anesthesia follow up: Airway intact: Yes Vital signs: Temperature 98 F Pulse Rate 60 Respiratory Rate 16 Blood Pressure 160/84 Pulse Oximetry 95 Oxygen Delivery Me thod Room Air Oxygen Flow Rate 8 Fraction of Inspir ed Oxygen Hydration adequate: Yes Nausea and vomiting: No Pain level: 1 Mental status: Baseline
--- NOTE | 2020-02-26 15:26 | SUR.PHASEII ---
1510 pt's Astrid here and instructed on how to remove elaine catheter at home and verbalized understanding,pt and verbalized by shaking their heads in uniso, 10 cc syringe given to pt and
[2020-03-04 00:47] LABS: Stone Source NOT GIVEN
== END 2020-02-26 15:15 | disposition home or self-care (01) ==
PROVIDERS: PCP Internal Medicine; Visit Provider Urology
PROC: 0TCB8ZZ Extirpation of Matter from Bladder, Via Natural or Artificial Opening Endoscopic (ICD-10-PCS; CPT 52317; principal; 2020-02-26 13:00)
DX: N21.0 Calculus in bladder (principal); I10 Essential (primary) hypertension; G47.30 Sleep apnea, unspecified; M17.0 Bilateral primary osteoarthritis of knee; N40.1 Benign prostatic hyperplasia with lower urinary tract symptoms; N13.8 Other obstructive and reflux uropathy
CPT/HCPCS: 52317; 12345; 82365; 88300; J1100; J1956; J2405; J2704; J3010; J3490; J7030

== ENCOUNTER → 2020-08-26 10:02 | Outpatient (BNVA) | payer MEDICARE, OTHER, SELFPAY | PROVIDERS: PCP Internal Medicine; Visit Provider Urology | DX: R31.0 Gross hematuria (principal); N40.0 Benign prostatic hyperplasia without lower urinary tract symptoms; Z12.5 Encounter for screening for malignant neoplasm of prostate | CPT/HCPCS: 81003; G0103 ==